=== PATIENT | female | born 1990 | race Caucasian/White ===

== ENCOUNTER 2021-08-17 08:43 | Emergency (ER) | payer OTHER ==
[2021-08-17 09:40] LABS: HEMOGLOBIN 13.5 gm/dl (12.3-15.3); RED BLOOD COUNT 4.55 M/UL (4.00-5.10); WHITE BLOOD COUNT 14.1 K/UL (4.5-11.0)
[2021-08-17 10:22] LABS: BUN/CREATININE RATIO 27 (0-10)
[2021-08-17] MEDS ORDERED: ZOFRAN4 MG PO (13:33)
== END 2021-08-17 13:51 | disposition home or self-care (01) ==
LOC: ER1 08:43
PROVIDERS: Physician Assistant
DX: R10.9 Unspecified abdominal pain (principal); R10.812 Left upper quadrant abdominal tenderness; R11.2 Nausea with vomiting, unspecified; R00.0 Tachycardia, unspecified; E11.43 Type 2 diabetes mellitus with diabetic autonomic (poly)neuropathy; K31.84 Gastroparesis; F17.200 Nicotine dependence, unspecified, uncomplicated; Z88.5 Allergy status to narcotic agent
CPT/HCPCS: 36600; 80053; 81001; 82009; 82150; 82800; 82962; 83605; 83690; 84703; 85025; 87040; 96374; 96375; 99284; J1170; J2405; J2550; Q9967

== ENCOUNTER 2021-08-18 18:33 | Observation (INO) | payer OTHER ==
[~2021-08-18] VITALS: Ht 175.3 cm; Wt 97.5 kg
[~2021-08-18 18:33] MED LIST: ZOFRAN4 MG PO
[2021-08-18 19:42] LABS: HEMOGLOBIN 13.5 gm/dl (12.3-15.3); RED BLOOD COUNT 4.52 M/UL (4.00-5.10); WHITE BLOOD COUNT 15.3 K/UL (4.5-11.0)
[2021-08-18 20:03] LABS: BUN/CREATININE RATIO 20 (0-10)
[2021-08-19] MEDS ORDERED: LANTUS100 UNIT/1 SQ (00:35)
[2021-08-19] MEDS ORDERED: HUMALOG100 UNIT/1 SC (00:35)
[2021-08-19 05:53] LABS: WHITE BLOOD COUNT 12.6 K/UL (4.5-11.0)
[2021-08-19 05:54] LABS: HEMOGLOBIN 11.5 gm/dl (12.3-15.3); RED BLOOD COUNT 3.93 M/UL (4.00-5.10)
[2021-08-19 06:09] LABS: BUN/CREATININE RATIO 19 (0-10)
[2021-08-19] MEDS ORDERED: PROTONIX 40 MG40 M1 PO (10:06)
[2021-08-19] MEDS ORDERED: ZOFRAN4 MG PO (10:06)
[2021-08-20] MEDS ORDERED: BENTYL 20MG TAB20 MG PO ×2 (05:35→06:04)
[2021-08-20] MEDS ORDERED: ZOFRAN ODT 4 MG4 MG SL ×2 (05:35→06:04)
== END 2021-08-19 12:22 | disposition home or self-care (01) ==
LOC: ER1 18:33 → MED SURG 4 22:09 → CDU 22:09 → MED SURG 4 08-19 00:24
PROVIDERS: Emergency Medicine; ADMIT Internal Medicine
DX: R11.2 Nausea with vomiting, unspecified (principal); R10.13 Epigastric pain; R00.0 Tachycardia, unspecified; D72.829 Elevated white blood cell count, unspecified; E11.43 Type 2 diabetes mellitus with diabetic autonomic (poly)neuropathy; K31.84 Gastroparesis; D64.9 Anemia, unspecified; I10 Essential (primary) hypertension; F17.210 Nicotine dependence, cigarettes, uncomplicated; Z79.4 Long term (current) use of insulin
CPT/HCPCS: 36415; 80048; 80053; 80307; 81001; 83690; 83735; 84703; 85025; 96374; 96375; 99284; C9113; G0378; J1170; J1200; J1885; J2270; J2405; J2765; J3480; J7030

== ENCOUNTER 2021-08-19 22:14 | Emergency (ER) | payer OTHER ==
[~2021-08-19 22:14] MED LIST changes: +HUMALOG100 UNIT/1 SC; +LANTUS100 UNIT/1 SQ; +PROTONIX 40 MG40 M1 PO
[2021-08-19 23:04] LABS: HEMOGLOBIN 12.9 gm/dl (12.3-15.3); RED BLOOD COUNT 4.26 M/UL (4.00-5.10); WHITE BLOOD COUNT 14.8 K/UL (4.5-11.0)
[2021-08-19 23:28] LABS: BUN/CREATININE RATIO 15 (0-10)
[2021-08-20] MEDS ORDERED: BENTYL 20MG TAB20 MG PO ×2 (05:35→06:04)
[2021-08-20] MEDS ORDERED: ZOFRAN ODT 4 MG4 MG SL ×2 (05:35→06:04)
[2021-08-21] MEDS ORDERED: ZOFRAN ODT 4 MG4 MG GT (09:59)
== END 2021-08-20 05:41 | disposition home or self-care (01) ==
LOC: ER1 22:14
PROVIDERS: Physician Assistant
DX: R10.9 Unspecified abdominal pain (principal); R11.2 Nausea with vomiting, unspecified; E11.9 Type 2 diabetes mellitus without complications; F17.200 Nicotine dependence, unspecified, uncomplicated; Z90.49 Acquired absence of other specified parts of digestive tract
CPT/HCPCS: 80053; 81001; 82009; 82800; 83690; 84703; 85025; 96374; 96375; 96376; 99284; J2270; J2405; J2550

== ENCOUNTER 2021-08-21 02:36 | Emergency (ER) | payer OTHER ==
[~2021-08-21 02:36] MED LIST changes: +BENTYL 20MG TAB20 MG PO; +ZOFRAN ODT 4 MG4 MG SL
[2021-08-21 03:00] LABS: HEMOGLOBIN 13.8 gm/dl (12.3-15.3); RED BLOOD COUNT 4.53 M/UL (4.00-5.10); WHITE BLOOD COUNT 13.9 K/UL (4.5-11.0)
[2021-08-21 03:23] LABS: BUN/CREATININE RATIO 14 (0-10)
[2021-08-21] MEDS ORDERED: ZOFRAN ODT 4 MG4 MG GT (09:59)
== END 2021-08-21 10:24 | disposition home or self-care (01) ==
LOC: ER1 02:36
PROVIDERS: Emergency Medicine
DX: R10.9 Unspecified abdominal pain (principal); R11.0 Nausea; Z20.822 Contact with and (suspected) exposure to COVID-19; E11.9 Type 2 diabetes mellitus without complications; F17.200 Nicotine dependence, unspecified, uncomplicated
CPT/HCPCS: 80053; 83690; 85025; 93005; 96374; 96375; 96376; 99285; J1885; J2270; J2405; J2550; Q9967; U0002